=== PATIENT | female | born 1965 | race Caucasian/White ===

== ENCOUNTER 2018-11-30 21:11 | Emergency (ER) | payer SELFPAY ==
--- NOTE | 2018-11-30 22:39 | ED ---
Throat Pain/Nasal Congestion - HPI Summary HPI Summary: A 53 y/o female presents to [facility] with a chief complaint of right vision trouble since 18:00 11/29/18. She notes that her right eye will see dark spots and then will see flashes of a light streak coming down in her peripheral vision. She denies eye pain, headaches, N/V, weakness in arms or legs or trouble speaking but notes that it feels like her eyes are dry. She takes Wellbutrin and Lexapro. 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 At triage she rated her pain as a 0/10 in severity. - History of Current Complaint Chief Complaint: EDEyeProblem Time Seen by Provider: 11/30/18 22:29 Hx Obtained From: Patient Onset/Duration: Sudden Onset, Lasting Hours, Still Present Severity: Mild Associated Signs And Symptoms: Positive: Negative Cough: None - Allergies/Home Medications Allergies/Adverse Reactions: Allergies Allergy/AdvReac Type Severity Reaction Status Date / Time Penicillins Allergy Rash Verified 12/01/18 00:30 PMH/Surg Hx/FS Hx/Imm Hx Sensory History: Denies: Hx Deafness EENT History: Denies: Hx Deafness - Surgical History Surgery Procedure, Year, and Place: R ankle surgery 2004. tonsilectomy. left knee arthroscopic. left eye x 4 as child Infectious Disease History: No Infectious Disease History: Reports: Hx Tuberculosis Denies: History Other Infectious Disease, Traveled Outside the [place] in Last 30 Days - Family History Known Family History: Negative: Hypertension, Diabetes - Social History Alcohol Use: None Substance Use Type: Reports: None Smoking Status (MU): Never Smoked Tobacco Review of Systems Negative: Fever Positive: Other - negative: eye pain, Positive: feels like eyes are dry. Negative: Vomiting, Nausea Neurological: Negative - difficulty speaking, Negative: Headache, Weakness All Other Systems Reviewed And Are Negative: Yes Physical Exam - Summary Physical Exam Summary: Appearance: Well-appearing, Well-nourished, lying in bed comfortable Skin: Warm, dry, no obvious rash Eyes:Disconjugate gaze with exophthalmos on left, visual acuity left eye limited to finger counting winch is baseline, visual acuity is intact to gross confrontation, PERRL, no conjunctival injection. ENT: mucous membranes moist Neck: deferred Respiratory: No signs of respiratory distress Cardiovascular: Appears well perfused, pulses are nml Abdomen: deferred Musculoskeletal: Moving all 4 extremities without obvious discomfort Neurological: Awake and alert, mentation is normal, speech is fluent and appropriate Psychiatric: affect is normal, does not appear anxious or depressed Triage Information Reviewed: Yes Vital Signs On Initial Exam: Initial Vitals Temp Pulse Resp BP Pulse Ox 98.5 F 83 18 144/87 100 11/30/18 21:15 11/30/18 21:15 11/30/18 21:15 11/30/18 21:15 11/30/18 21:15 Vital Signs Reviewed: Yes Diagnostics - Vital Signs Vital Signs Temp Pulse Resp BP Pulse Ox 11/30/18 21:15 98.5 F 83 18 144/87 100 - Laboratory Lab Statement: Any lab studies that have been ordered have been reviewed, and results considered in the medical decision making process. Re-Evaluation - Re-Evaluation First Eval Re-Evaluation Time: 06:35 Change: Unchanged Comment: Called the patient to inform her that Dr. Lara can see her today. EENT Course/Dx - Course Course Of Treatment: A 53 y/o female presents to [facility] with a chief complaint of right vision trouble since 18:00 11/29/18. She notes that her right eye will see dark spots and then will see flashes of a light streak coming down in her peripheral vision. The physical exam revealed Disconjugate gaze with exophthalmos on left, visual acuity left eye limited to finger counting winch is baseline, visual acuity is intact to gross confrontation, PERRL, no conjunctival injection. This patient will be discharged and follow up with [facility] ophthamology clinic. The patient is agreeable with this plan. - Diagnoses Provider Diagnoses: Vitreous detachment Discharge - Sign-Out/Discharge Documenting (check all that apply): Patient Departure - DC Patient Received Moderate/Deep Sedation with Procedure: No - Discharge Plan Condition: Good Disposition: HOME Patient Education Materials: Retinal [place] (ED) Referrals: Narda Echols MD [Primary Care Provider] - Additional Instructions: Your symptoms make me concerned for a problem in the retina of the right eye. To diagnose this you need an exam by an student development specialist, and unfortunately I do not have a specialist service control operator for us tonight. I am reaching out to the [facility] in [place] to see if I can have the eye doctor there take care of you - this will likely involve going up there tomorrow to be seen in the doctor's office. I will contact you later tonight or in the morning once I have arranged that. - Billing Disposition and Condition Condition: GOOD Disposition: Home - Attestation Statements Document Initiated by Linda: Yes Documenting Scribe: Akil Montez Provider For Whom Linda is Documenting (Include Credential): Rob Morejon MD Scribe Attestation: I, Akil Montez, scribed for Rob Morejon MD on 12/04/18 at 0545. Scribe Documentation Reviewed: Yes Provider Attestation: The documentation as recorded by the Akil suazo accurately reflects the service I personally performed and the decisions made by me, Rob Morejon MD Status of Scribe Document: Viewed
[2018-12-01 00:24] VITALS: BP 113/71
== END 2018-12-01 00:23 | disposition home or self-care (01) ==
LOC: ED 21:11
DX: H43.811 Vitreous degeneration, right eye (principal); Z88.0 Allergy status to penicillin
CPT/HCPCS: 99282